=== PATIENT | male | born 1995 ===

== ENCOUNTER 2016-11-20 16:27 | Emergency (ER) | payer BC, OTHER ==
[2016-11-20 16:31] VITALS: BMI 21.9
[2016-11-20 16:35] VITALS: BP 124/83; PULSE 68; RESP 22; O2SAT 100
--- NOTE | 2016-11-20 16:48 | ED PDOC ---
Arrival/HPI <Peña Castro - Last Filed: 11/20/16 17:36> - General Historian: Patient <Flaco Cruz - Last Filed: 11/20/16 17:51> - General Chief Complaint: Back Pain Time Seen by Provider: 11/20/16 16:32 - History of Present Illness Narrative History of Present Illness (Text): 11/20/16 16:45 Mr. York is a 21 year old male with no past medical history who comes in complaining of left sided back pain. Patient states 30 mintues prior to arrival he experienced a shooting sharp pain in his left upper back. He rated the pain as 10/10 and denies radiation. At the time of the interview the patient reports pain is diminished from onset and rated as 4/10. Pt reports the night prior he was moving several boxes and experienced a similar pain in his back. The pain was short and resolved after resting. The patient denies any loss of bowel, urine, numbness in his legs, or radiation of pain, weakness, recent procedures, or fever. He denies radiation of pain into the groin or blood in urine. He denies taking any medication for this most recent history of back pain. (Flaco Cruz) Past Medical History - Provider Review Nursing Documentation Reviewed: Yes - Travel History Have you recently traveled outside [place] w/in the past 3 mons?: Yes - Infectious Disease Hx of Infectious Diseases: None - Past Medical History Past Medical History: No Previous - Psychiatric Hx Depression: No Hx Emotional Abuse: No Hx Physical Abuse: No Hx Substance Use: No - Past Surgical History Past Surgical History: No Previous - Surgical History Other/Comment: L knee surgery - Anesthesia Hx Anesthesia: Yes Hx Anesthesia Reactions: No Hx Malignant Hyperthermia: No - Suicidal Assessment Feels Threatened In Home Enviroment: No <Flaco Cruz - Last Filed: 11/20/16 17:51> Family/Social History - Physician Review Nursing Documentation Reviewed: Yes Family/Social History: No Known Family HX Smoking Status: Never Smoked Hx Alcohol Use: No Hx Substance Use: No Hx Substance Use Treatment: No <Flaco Cruz - Last Filed: 11/20/16 17:51> Allergies/Home Meds <Peña Castro - Last Filed: 11/20/16 17:36> <Flaco Cruz - Last Filed: 11/20/16 17:51> Allergies/Adverse Reactions: Allergies No Known Allergies Allergy (Verified 06/20/14 20:14) Review of Systems - Physician Review All systems were reviewed & negative as marked: Yes - Review of Systems Constitutional: absent: Fevers Musculoskeletal: Back Pain (left sided ) Neurological: absent: Focal Weakness <Flaco Cruz - Last Filed: 11/20/16 17:51> Physical Exam Vital Signs Reviewed: Yes Blood Pressure: Normal Pulse: Regular Respiratory Rate: Normal Appearance: Positive for: Well-Appearing Pain Distress: None Mental Status: Positive for: Alert and Oriented X 3 - Systems Exam Head: Present: Atraumatic, Normocephalic Pupils: Present: PERRL Extroacular Muscles: Present: EOMI Conjunctiva: Present: Normal Mouth: Present: Moist Mucous Membranes Neck: Present: Normal Range of Motion Respiratory/Chest: Present: Clear to Auscultation, Good Air Exchange. No: Respiratory Distress, Accessory Muscle Use Cardiovascular: Present: Regular Rate and Rhythm, Normal S1, S2. No: Murmurs Abdomen: Present: Normal Bowel Sounds. No: Tenderness, Distention, Peritoneal Signs Back: Present: Paraspinal Tenderness (left side). No: CVA Tenderness, Midline Tenderness, Pain with Leg Raise Upper Extremity: Present: Normal Inspection. No: Cyanosis, Edema Lower Extremity: Present: Normal Inspection. No: Edema Neurological: Present: GCS=15, CN II-XII Intact, Speech Normal Skin: Present: Warm, Dry, Normal Color. No: Rashes Psychiatric: Present: Alert, Oriented x 3, Normal Insight, Normal Concentration <Flaco Cruz - Last Filed: 11/20/16 17:51> Vital Signs Temp Pulse Resp BP Pulse Ox 11/20/16 16:59 97.9 F 11/20/16 16:33 68 22 124/83 100 Medical Decision Making <Peña Castro - Last Filed: 11/20/16 17:36> <Flaco Cruz - Last Filed: 11/20/16 17:51> ED Course and Treatment: A 21 year old male with left sided back pain. In agreement with resident note, which includes further HPI details. Patient was seen and evaluated with resident , came up with plan and treatment together. (Peña Castro) 11/20/16 17:12 Impression: Pt is a 21 year old male with no past medical history complaining of left sided back pain for the past 30 minutes. Differential Diagnosis included but are not limited to: - musculoskeletal strain Plan: -Toradol IM - Reassess and disposition Progress Notes: Discussed with patient to not take the flexeril and operate a motor vehicle or heavy machinery (Flaco Cruz) - Medication Orders Current Medication Orders: Discontinued Medications Ketorolac Tromethamine (Toradol) 60 mg IM STAT STA Stop: 11/20/16 16:54 Last Admin: 11/20/16 17:08 Dose: 60 mg - Scribe Statement The provider has reviewed the documentation as recorded by the Scribe <Peña Castro - Last Filed: 11/20/16 17:36> - PA / STRAP BUCKLER / Resident Statement MD/ has reviewed & agrees with the documentation as recorded. MD/DO has examined the patient and agrees with the treatment plan. <Flaco Cruz - Last Filed: 11/20/16 17:51> - Scribe Statement Dorene Thomas Provider Scribe Attestation: All medical record entries made by the Scribe were at my direction and personally dictated by me. I have reviewed the chart and agree that the record accurately reflects my personal performance of the history, physical exam, medical decision making, and the department course for this patient. I have also personally directed, reviewed, and agree with the discharge instructions and disposition. (Peña Castro) Disposition/Present on Arrival <Peña Castro - Last Filed: 11/20/16 17:36> - Present on Arrival Any Indicators Present on Arrival: No History of DVT/PE: No History of Uncontrolled Diabetes: No Urinary Catheter: No History of Decub. Ulcer: No History Surgical Site Infection Following: None - Disposition Have Diagnosis and Disposition been Completed?: Yes Disposition Time: 17:14 Patient Plan: Discharge <Flaco Cruz - Last Filed: 11/20/16 17:51> - Disposition Diagnosis: Musculoskeletal back pain Disposition: HOME/ ROUTINE Condition: GOOD Additional Instructions: York, thank you for letting us take care of you today. Your provider was Dr. Cruz. You were treated for musculoskeletal back strain. The emergency medical care you received today was directed at your acute symptoms. If you were prescribed any medication, please fill it and take as directed. It may take several days for your symptoms to resolve. Return to the Emergency Department if your symptoms worsen, do not improve, or if you have any other problems. Please contact your doctor or call one of the physicians/clinics you have been referred to that are listed on the Patient Visit Information form that is included in your discharge packet. Bring any paperwork you were given at discharge with you along with any medications you are taking to your follow up visit. Our treatment cannot replace ongoing medical care by a primary care provider (PCP) outside of the emergency department. Thank you [facility] to [facility] of your care today. Do not operate a motor vehicle while taking flexeril. Prescriptions: Cyclobenzaprine [Cyclobenzaprine HCl] 10 mg PO TID #15 tab Referrals: Jacinto Gordon MD [Primary Care Provider] - Follow up with primary
[2016-11-20 17:09] VITALS: TEMP 97.9
== END 2016-11-20 17:30 | disposition home or self-care (01) ==
LOC: ED 16:27
DX: M54.9 Dorsalgia, unspecified (principal)
CPT/HCPCS: 96372; 99283; J1885